=== PATIENT | female | born 1975 | race Asian ===

== ENCOUNTER 2023-05-02 09:42 | Outpatient (CLI) | payer BC | END 2023-05-02 09:43 | disposition home or self-care (01) | LOC: BICMAMMO 09:42 | PROVIDERS: ATTEND Physician Assistant | DX: N63.10 Unspecified lump in the right breast, unspecified quadrant (principal) | CPT/HCPCS: G0279 ==

== ENCOUNTER 2024-04-27 13:34 | Outpatient (CLI) | payer BC | END 2024-04-27 13:35 | disposition home or self-care (01) | LOC: BICMAMMO 13:34 | PROVIDERS: ATTEND Family Medicine | DX: Z12.31 Encounter for screening mammogram for malignant neoplasm of breast (principal); Z80.3 Family history of malignant neoplasm of breast | CPT/HCPCS: 77063; 77067 ==

== ENCOUNTER 2025-06-09 15:41 | Outpatient (CLI) | payer BC | END 2025-06-09 15:42 | disposition home or self-care (01) | LOC: BICMAMMO 15:41 | PROVIDERS: ATTEND Family Medicine | DX: Z12.31 Encounter for screening mammogram for malignant neoplasm of breast (principal); Z80.3 Family history of malignant neoplasm of breast | CPT/HCPCS: 77063; 77067 ==